=== PATIENT | female | born 1965 | race Caucasian/White ===

== ENCOUNTER 2024-10-02 11:02 | Outpatient (CLI) | payer OTHER, SELFPAY ==
--- NOTE | ~2024-10-02 | MR_ITS ---
MRI of the lumbar spine Clinical History: Radiculopathy Technique: Axial T2-weighted images, and sagittal T1-weighted, T2-weighted, and and T2 fat-sat images were acquired. Findings: There is no fracture or subluxation of the lumbar spine. Vertebral bodies maintain normal h eight and alignment. No bone marrow signal abnormality seen. At L1-L2, there is no disc bulge or herniation. No spinal canal stenosis, cord compression, or neural foraminal narrowing. At L2-L3, there is no disc bulge region. There is mild to moderate facet arthropathy. No central chris l stenosis or neural foraminal narrowing. At L3-L4, there is no disc bulge or herniation. No spinal canal stenosis or neural foraminal narrowin g. At L4-L5, there is no disc bulge or herniation. There is moderate to advanced facet arthropathy. No c entral canal stenosis or neural foraminal narrowing. At L5-S1, there is no disc bulge or herniation. There is advanced arthropathy. No central canal steno sis or definite neural foraminal narrowing. Paravertebral soft tissues are unremarkable. Impression: Mild degenerative change, as above. No canal stenosis or neural foraminal narrowing seen. Reviewed, dictated and finalized at location . Impression: Mild degenerative change, as above. No canal stenosis or neural foraminal narro wing seen.
== END 2024-10-02 11:03 | disposition home or self-care (01) ==
PROVIDERS: PCP Family Medicine; Visit Provider Physician Assistant
DX: M54.17 Radiculopathy, lumbosacral region (principal)
CPT/HCPCS: 72148